=== PATIENT | female | born 1940 | race Caucasian/White ===

== ENCOUNTER 2017-12-07 09:38 | Inpatient (IN) | payer MEDICARE, BC ==
[~2017-12-07] VITALS: Ht 154.9 cm; Wt 84.4 kg
[2017-12-07] VITALS (16 sets, daily range): BP systolic 117–146; BP diastolic 63–82
[~2017-12-07 09:38] MED LIST: ASPIR 8181 MG PO; BYSTOLIC 5 MG5 M1 PO; BYSTOLIC10 MG PO; CO Q-10100 MG PO; CRESTOR20 MG PO; DALIRESP500 MCG PO; FISH OIL 1,001000 M2 PO; PLAVIX 75 MG TA75 M1 PO; PREMARIN0.625 MG PO; PROTONIX40 M1 PO; RESTASIS1 EACH OPHTHALMIC; SERTRALINE HCL50 MG PO; SINGULAIR 10 MG10 M1 PO; SPIRIVA INH; SYMBICORT160 MCG/4. INH; VITAMIN D2000 UNIT PO; XANAX 0.25 MG0.25 MG PO
[2017-12-07 10:09] LABS: HEMATOCRIT 41.5 % (37.0-47.0); HEMOGLOBIN 13.5 gm/dL (12.0-15.0); MCH 27.2 pg (26.0-34.0); MCHC 32.4 g/dL (28.0-37.0); MPV 8.7 fl. (7.2-11.1); RBC 4.94 mil/uL (4.20-5.00); RDW-CV 14.9 % (10.5-14.5); WBC 11.2 thou/uL (4.0-11.0)
[2017-12-07 10:18] LABS: APTT 29.6 Seconds (25.0-31.3); PROTIME 10.2 Seconds (9.20-11.50)
[2017-12-07 10:27] LABS: ALBUMIN 3.6 g/dL (3.4-5.0); ALKALINE PHOSPHATASE 90 U/L (46-116); ANION GAP 8 mmol/L (7-16); CALCIUM 10.4 mg/dL (8.5-10.1); CHLORIDE 104 mmol/L (98-107); CO2 28 mmol/L (21-32); CREATININE 0.7 mg/dL (0.6-1.3); GLUCOSE 107 mg/dL (70-99); POTASSIUM 4.1 mmol/L (3.5-5.1); SGOT 19 U/L (15-37); SGPT 22 U/L (30-65); SODIUM 140 mmol/L (136-145); TOTAL BILIRUBIN 0.3 mg/dL (<0.1-1.0); TOTAL PROTEIN 7.7 g/dL (6.4-8.2)
[2017-12-07 10:43] LABS: BUN 12 mg/dL (7-18); CHOLESTEROL 180 mg/dL (<200); HDL CHOLESTEROL 85 mg/dL (>40); LDL CHOLESTEROL 74 mg/dL (<100); TC:HDL 2.1 Ratio (Not establshd); TRIGLYCERIDE 108 mg/dL (<150); VLDL 22 mg/dL (<40)
[2017-12-07 10:44] LABS: SERUM ASSESSMENT Clear
--- NOTE | 2017-12-07 17:46 | EKG ---
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[employer] Teacher: : 1940 Requested By: Luis Enrique Mcdaniel Order Number: [id number] Pascale MD: Ilan Shepard Measurements Intervals [place] Rate: 70 P: 49 IA: 214 QRS: 37 QRSD: 151 T: 69 QT: 447 QTc: 483 Interpretive Statements Sinus rhythm Borderline prolonged IA interval Right bundle branch block Compared to ECG 02/01/2016 08:38:55 Right bundle-branch block now present Electronically Signed On 12-07-2017 17:46:06 TRANSFER TABLE OPERATOR HELPER by Ilan Shepard [email or web address] <ELECTRONICALLY SIGNED> By: Ilan Shepard MD, [facility] 12/07/17 1746 1050 1050 Ilan Shepard MD, [facility] /EPI
--- NOTE | 2017-12-07 17:46 | EKG ---
[place] [address] ELECTROCARDIOGRAM REPORT Name: EPIFANIO MUSE Room: [address] ADM IN .R.#: [id number] Admission: 12/07/17 Attend Phys: Luis Enrique Mcdaniel MD, Discharge: Date of : 42 Report #: [id number] THIS REPORT FOR: //name// [facility] Test Date: 2017-12-07 Test Time: 10:42:44 Pat Name: EPIFANIO MUSE Department: Room: [facility] Gender: F Title Supervisor: : 1940 Requested By: Luis Enrique Mcdaniel Order Number: [id number] Pascale MD: Ilan Shepard Measurements Intervals [place] Rate: 74 P: 59 [place]: 164 QRS: 40 QRSD: 148 T: -14 QT: 418 QTc: 464 Interpretive Statements Sinus rhythm Probable left atrial enlargement Right bundle branch block Baseline wander in lead(s) I,II,aVR,aVF,V3,V6 Compared to ECG 02/01/2016 08:38:55 Right bundle-branch block now present Electronically Signed On 12-07-2017 17:46:01 CROP GRAIN OR LIVESTOCK FARMER by Ilan Shepard [email or web address] <ELECTRONICALLY SIGNED> By: Ilan Shepard MD, FACC 12/07/17 1746 1042 1042 Ilan Shepard MD, FAC /EPI
--- NOTE | 2017-12-07 17:47 | EKG ---
[place] [address] ELECTROCARDIOGRAM REPORT Name: EPIFANIO MUSE Room: [address] ADM IN M.R.#: [id number] Admission: 12/07/17 Attend Phys: Luis Enrique Mcdaniel MD, Discharge: Date of : 42 Report #: [id number] THIS REPORT FOR: //name// [facility] Test Date: 2017-12-07 Test Time: 13:08:26 Pat Name: EPIFANIO MUSE Department: Room: [facility] Gender: F Wastewater Supervisor: 28 : 1940 Requested By: Luis Enrique Mcdaniel Order Number: [id number] Pascale MD: Ilan Shepard Measurements Intervals [place] Rate: 65 P: 71 MT: 171 QRS: 32 QRSD: 148 T: -7 QT: 442 QTc: 460 Interpretive Statements Sinus rhythm Probable left atrial enlargement Right bundle branch block Compared to ECG 02/01/2016 08:38:55 Right bundle-branch block now present Electronically Signed On 12-07-2017 17:46:57 BUILDING RENTAL SUPERINTENDENT by Ilan Shepard [email or web address] <ELECTRONICALLY SIGNED> By: Ilan Shepard MD, [facility] 12/07/17 1746 1308 1308 Ilan Shepard MD, FAC /EPI
[2017-12-08 00:02] VITALS: BP 100/46
[2017-12-08 03:57] VITALS: BP 118/54
--- NOTE | 2017-12-08 05:15 | NUR ---
A&O X4 CALM COOPERITVE. PT REFUSED FLUIDS AND 0000 MEDS. PT ADLIB. REPORTS SHE IS READY TO GO HOME. DENIES PAIN. VITALS WNL. BBB SR ON THE MONITOR. PT STOPED O2, O2 SAT IS 93 RA. HOURLY ROUNDING FOR SAFETY.
[2017-12-08 05:31] LABS: HEMOGLOBIN 12.3 gm/dL (12.0-15.0); MCH 27.5 pg (26.0-34.0); MCHC 32.3 g/dL (28.0-37.0); RBC 4.48 mil/uL (4.20-5.00); RDW-CV 15.1 % (10.5-14.5); WBC 10.7 thou/uL (4.0-11.0)
[2017-12-08 05:51] LABS: CALCIUM 9.6 mg/dL (8.5-10.1); CREATININE 0.6 mg/dL (0.6-1.3); TROPONIN-I LEVEL 0.11 ng/mL (<0.06)
[2017-12-08 08:00] VITALS: BP 135/62
[2017-12-08 09:19] VITALS: BP 118/54
[2017-12-08 11:46] VITALS: BP 118/54
[2017-12-08 12:13] VITALS: BP 118/54
--- NOTE | 2017-12-08 13:02 | NUR ---
PT DISCHARGED WITH CARDIAC REHAB INSTRUCTIONS NO CONCERNS AT THIS TIME IV AND TRANSPORTATION PROJECT MANAGER DISCONTINUED
--- NOTE | 2017-12-08 16:30 | H ---
[place] [address] HISTORY AND PHYSICAL Name: EPIFANIO MUSE Alessia Room: [address] IN M.R.#: [id number] Admission: 12/07/17 Attend Phys: Luis Enrique Mcdaniel MD, Discharge: 12/08/17 Date of : 42 Report #: [id number] THIS REPORT FOR: //name// CC: FAM unknown Luis Enrique Mcdaniel History and Physical HISTORY OF PRESENT ILLNESS: The patient is a very pleasant 77-year-old female with a history of complex coronary artery disease status post multivessel percutaneous coronary intervention in 2008. 22 months ago, she underwent intervention of the distal right coronary artery with stents deployed in the posterior descending and posterolateral branches. Recently, she has noted some chest discomfort and some increase in dyspnea with activity. She underwent a recent stress echocardiographic evaluation on 11/10/2017 and that study was abnormal with inducible anterolateral distal inferior and lateral hypokinesis after a modest exertion. It was felt to be positive in multiple territories. The patient has underlying hypertension, hypercholesterolemia, history of tobacco abuse and chronic obstructive pulmonary disease. She has remained compliant with a complex medical regimen including vitamins C, D and coenzyme Q as well as Symbicort b.i.d., Zoloft 100 mg daily, aspirin 81 mg daily, Singulair 10 mg daily, Premarin, Crestor 20 mg daily, Ambien as needed for sleep, Xanax on a p.r.n. basis, albuterol 2 puffs as needed, Bystolic 5 mg daily and Protonix 40 mg. PAST MEDICAL HISTORY: Remarkable for chronic obstructive pulmonary disease with underlying asthma, hypertension, hypercholesterolemia and significant antecedent cigarette smoking history. SOCIAL HISTORY: The patient continues to smoke modest amounts of cigarettes. REVIEW OF SYSTEMS: Remarkable for the following positives: PULMONARY: There is a history of asthma and chronic dyspnea with exertion. GENERAL: The patient notes modest weight excess. PHYSICAL EXAMINATION: GENERAL: Demonstrates a pleasant elderly female in no acute distress. VITAL SIGNS: Blood pressure is 135/75, pulse rate is 84, respirations are 18-20 per minute. NECK: Jugular venous pressure is normal. CHEST: Reveals decreased breath sounds with a prolonged expiratory phase with occasional rhonchi. CARDIAC: Reveals normal first and second heart sounds without rubs, [place] [address] HISTORY AND PHYSICAL Name: EPIFANIO MUSE Room: [address]#: [id number] Admission: 12/07/17 Attend Phys: Luis Enrique Mcdaniel MD, Discharge: 12/08/17 Date of : 42 Report #: [id number] ABDOMEN: Mildly obese. EXTREMITIES: Without edema with intact femoral, pedal and radial pulses. IMPRESSION: 1. Coronary artery disease, status post prior percutaneous coronary interventions in 2008 and 2015. 2. Recent abnormal stress echocardiogram with inducible anterolateral, distal, inferior and lateral hypokinesis after a modest exercise. 3. Hypertension. 4. Hypercholesterolemia. 5. Chronic obstructive pulmonary disease with the bronchoconstrictive component. RECOMMENDATIONS: Given the aforementioned clinical scenario with known coronary artery disease status post multiple prior percutaneous coronary interventions and a recently abnormal stress echocardiogram with three territories suggesting inducible ischemia in multiple territories, I would recommend proceeding with repeat cardiac catheterization to define current coronary anatomy and prospects for subsequent therapeutic modification. This has been discussed with the patient and family, we will plan and proceed with cardiac catheterization on Wednesday12/07/2017. The patient to be admitted through same day surgery at [facility] for cardiac catheterization on 12/07/2017. <ELECTRONICALLY SIGNED> By: Luis Enrique Mcdaniel MD, FACC 12/08/17 1630 0931 1022Josg Mcdaniel MD, FACC /nt
--- NOTE | 2017-12-08 16:31 | D ---
[address] [address] DISCHARGE SUMMARY Name: EPIFANIO GORE Room: [address] IN M.R.#: [id number] Admission: 12/07/17 Attend Phys: Luis Enrique Mcdaniel MD, Discharge: 12/08/17 Date of : 42 Report #: [id number] THIS REPORT FOR: //name// CC: Jonatan Gore MD [facility] FAM unknown Luis Enrique Mcdaniel DATE OF SERVICE: 12/08/2017 FINAL DISCHARGE DIAGNOSES: 1. Unstable angina. 2. Abnormal stress echocardiogram. 3. Coronary artery disease status post remote multivessel stenting and stenting of the LAD on 12/07/2017. 4. Hyperlipoproteinemia. 5. Hypertension. 6. Chronic obstructive pulmonary disease. PROCEDURES: 12/07/2017 -- left heart catheterization, left ventriculography, selective coronary arteriography, and percutaneous coronary intervention with deployment of drug-eluting stent at site of 80% irregular mid LAD stenosis. The patient is a delightful 77-year-old female with a history of known coronary artery disease and multiple prior percutaneous coronary interventions. She has underlying hypertension, hyperlipoproteinemia and chronic obstructive pulmonary disease in the context of an antecedent cigarette smoking history. Recently, she has noted increased dyspnea on exertion and stress echocardiogram revealed inducible anterolateral wall motion abnormality. In this context, I performed cardiac catheterization on 12/07/2017, which revealed 80% irregular mid LAD stenosis. There was a widely patent stent in the posterior descending and the posterolateral branch of the dominant right coronary artery with 40%-50% tubular narrowing proximal to the bifurcation. Circumflex with a nondominant vessel. Left ventricular function was mildly impaired with inferobasilar akinesis and mild mid anterior hypokinesis, estimated ejection fraction being 50%. The patient did well post-procedurally and there was good hemostasis at the right femoral site of catheterization. Laboratory data on 12/08 revealed a hemoglobin of 12.3; white blood cell count of 10,700 with 286,000 platelets. Sodium 142, potassium 4.0, BUN 9, creatinine 0.6, glucose randomly 108 milligrams percent. Troponin kaila inconsequentially to 0.11. The patient ambulated in the hallways without difficulty. She was discharged to home on the following medical regimen: Alprazolam 0.25 mg t.i.d., aspirin 81 mg daily, Symbicort 2 puffs b.i.d., cholecalciferol 2000 units daily, clopidogrel or Plavix 75 mg daily with a 600 mg dose given elayne-procedurally, cyclosporine ophthalmic drops one drop b.i.d., fish oil 1000 mg q.i.d., [place] [address] DISCHARGE SUMMARY Name: EPIFANIO GORE Room: [address] IN M.R.#: [id number] Admission: 12/07/17 Attend Phys: Luis Enrique Mdcaniel MD, Discharge: 12/08/17 Date of : 42 Report #: [id number] or Premarin 0.625 mg daily, Singulair 10 mg daily, nebivolol or Bystolic 10 mg daily, pantoprazole 40 mg daily, roflumilast 500 mcg p.o. daily, rosuvastatin 20 mg daily, sertraline or Zoloft 100 mg daily, Spiriva 1 capsule daily, coenzyme Q 200 mg daily. She is discharged home in stable condition. I will plan to see her in followup in approximately 4 weeks. She also has a primary care physician in [place] from where she originates. Thus, the patient is discharged to home on the aforementioned medications with followup as iterated above. She is in stable condition. <ELECTRONICALLY SIGNED> By: Luis Enrique Mcdaniel MD, FACC 12/08/17 1631 0958 1024Josg Mcdaniel MD, FACC /nt
--- NOTE | 2017-12-08 17:40 | EKG ---
[place] [address] ELECTROCARDIOGRAM REPORT Name: EPIFANIO MUSE Room: [address] IN M.R.#: [id number] Admission: 12/07/17 Attend Phys: Luis Enrique Mcdaniel MD, Discharge: 12/08/17 Date of : 42 Report #: [id number] THIS REPORT FOR: //name// [facility] Test Date: 2017-12-08 Test Time: 08:59:13 Pat Name: EPIFANIO MUSE Department: Room: [address] Gender: F Attendant Coin Operated Laundry: : 1940 Requested By: Luis Enrique Mcdaniel Order Number: [id number] Reading MD: Ilan Shepard Measurements Intervals [place] Rate: 105 P: 53 DC: 140 QRS: 57 QRSD: 148 T: -44 QT: 358 QTc: 474 Interpretive Statements Sinus tachycardia Multiple ventricular premature complexes Probable left atrial enlargement Right bundle branch block Compared to ECG 12/07/2017 13:08:26 Ventricular premature complex(es) now present Sinus rhythm no longer present Electronically Signed On 12-08-2017 17:40:32 CLOSET BUILDER by Ilan Shepard [email or web address] <ELECTRONICALLY SIGNED> By: Ilan Shepard MD, FACC 12/08/17 1740 0859 0859 Ilan Shepard MD, FAC /EPI
--- NOTE | 2017-12-10 10:58 | CARD ---
[address] [address] CARDIAC CATH REPORT Name: EPIFANIO MUSE Room: [address] IN ..#: [id number] Admission: 12/07/17 Attend Phys: Luis Enrique Mcdaniel MD, Discharge: 12/08/17 Date of : 42 Report #: [id number] THIS REPORT FOR: //name// APPROVED REPORT Patient Details Patient Status: Out-Patient Room #: The patient is a 77 year-old female Event Personnel Luis Enrique Mcdaniel Supervisor Rose Grading, Mesha Arshad RN Radiographic Technologist, Wes Wilson (R) Monitor, RicaFatou cooper RTR Scrub Procedures Performed Left heart catheterization, left ventriculography, selective coronary angiography, and percutaneous current mental deployment of drug-eluting stent at the site of 80% irregular mid LAD stenosis Indication Dyspnea, Positive stress test Risk Factors Hypercholesterolemia, Hypertension, Tobacco History () Previous Procedures/Diagnoses Previous PCI, Previous [place] Admission/Lab Medications/Medications given during procedure Aspirin, Platelet Aff. Inhib., Angiomax bolus and infusion Procedure Narrative The patient was brought electively to the Cardiac Catheterization Laboratory and was prepped and draped in a sterile manner. The right femoral was infiltrated with 1% Lidocaine subcutaneous anesthesia. A 6 Fr Perry sheath was inserted into the Right Femoral Artery. Coronary angiography was performed using coronary diagnostic catheters. The right coronary system was accessed and visualized with a Diagnostic JR4 catheter. The left coronary system was accessed and visualized with a Diagnostic JL 4 catheter. The left ventricle was accessed and visualized with a Diagnostic Straight Pig catheter. Left ventricular/Aortic Valve gradient assessed via catheter pullback. Left ventriculogram was performed in GONSALVES projection. Pre-demployment femoral angiogram was performed . Closure [place] [address] CARDIAC CATH REPORT Name: EPIFANIO MUSE Room: [address]#: [id number] Admission: 12/07/17 Attend Phys: Luis Enrique Mcdaniel MD, Discharge: 12/08/17 Date of : 42 Report #: [id number] Fr MynxGrip 6/7F. The patient tolerated the procedure well and there were no complications associated with the procedure. There was no hematoma. Intraoperative Conscious Sedation Sedation start time: 11:03 Case end Time: 11:50 Fentanyl 50 mcg Versed 2 mg Fluoro Time: 12.9 minutes Dose: DAP 156231 cGycm2 1594 mGy Contrast Type and Amount: Visipaque 230 ml Diagnostic Cath Left Main 0% narrowing LAD 80% irregular mid LAD stenosis Circumflex 30% proximal narrowing with 60% narrowing at the ostium of the second marginal branch Right Coronary 40% mid vessel narrowing with widely patent stents in the posterolateral and posterior descending branches Left Ventriculography The left ventricle is normal in size with contractility. The left ventricular ejection fraction is estimated to be 50%. There is no mitral insufficiency. Left ventriculography demonstrated an ejection fraction of 50% with inferobasilar akinesis and mild midanterior hypokinesis Hemodynamics The aortic pressure is 119/59 mmHg with a mean of 76 mmHg. The left ventricular pressure is 130/3 mmHg with a mean of mmHg. The left ventricular end diastolic pressure is 8 mmHg. There was no gradient across the aortic valve upon pullback. PCI Technique Lesion Anticoagulation was achieved with Angiomax. Patient was preloaded with Angiomax IV 12 ml. Percutaneous coronary intervention was performed on the mid left anterior descending artery segment. The lesion stenosis prior to intervention was 80% with DAWSON 3 flow. A 6F XB LAD 3.5 Guide Catheter was used to engage the ostium. A IG: ProwaterFlex 180CM Interventional Guidewire was used to cross the lesion. BALLOON DILATION A Balloon catheter Trek RX 2.5 X 15 was inserted and inflated up to 12.00atm for 18seconds. Additional Inflation: 14.00[place] [address] CARDIAC CATH REPORT Name: EPIFANIO UMSE Room: [address]#: [id number] Admission: 12/07/17 Attend Phys: Luis Enrique Mcdaniel MD, Discharge: 12/08/17 Date of : 42 Report #: [id number] 17seconds. STENT DEPLOYMENT A drug-eluting stent Xience Alpine RX 2.5X18 was inserted and inflated up to 12.00atm for 15seconds. Additional Inflation: 14.00atm for 13seconds. POST STENT DEPLOYMENT BALLOON DILATION A Balloon catheter NC Trek RX 2.5 X 12 was inserted and inflated up to 17.00atm for 14seconds. Additional Inflation: 18.00atm for 13seconds. Final angiography reveals 10 % stenosis with DAWSON 3 flow. Conclusion #1 significant coronary artery disease characterized by the following: A 80% irregular mid LAD stenosis, B 30% proximal circumflex proximal narrowing with 60 percent ostial second marginal narrowing, C dominant right coronary artery with 40% mid vessel narrowing, widely patent stents in the proximal posterior descending and posterolateral branches, #2 mild impairment in global left ventricular systolic function, estimated ejection fraction of 50% with inferobasilar akinesis and mild midanterior hypokinesis, #3 normal left-sided hemodynamics study, #4 successful percutaneous coronary intervention with deployment of drug-eluting stent at the site of 80% mid LAD stenosis with 10% residual narrowing following stent deployment and DAWSON-3 flow to the distal vessel. Recommendations Cardiac Risk Reduction Program Aggressive Medical [place] [address] CARDIAC CATH REPORT Name: EPIFANIO MUSE Room: [address] IN M.R.#: [id number] Admission: 12/07/17 Attend Phys: Luis Enrique Mcdaniel MD, Discharge: 12/08/17 Date of : 42 Report #: [id number] Aspirin (any) Clopidogrel <ELECTRONICALLY SIGNED> By: Luis Enrique Mcdaniel MD, FACC 12/10/178 57 57Luis Enrique Mcdaniel MD, FACC /INF
== END 2017-12-08 13:00 | disposition home or self-care (01) | DRG 247 ==
LOC: M.CL 09:38 → M.TBA-CV 12:12 → M.2W 12:12
PROVIDERS: ADMIT Internal Medicine
PROC: B2111ZZ Fluoroscopy of Multiple Coronary Arteries using Low Osmolar Contrast (ICD-10-PCS; principal; 2017-12-07)
PROC: B2151ZZ Fluoroscopy of Left Heart using Low Osmolar Contrast (ICD-10-PCS; principal; 2017-12-07)
PROC: 027034Z Dilation of Coronary Artery, One Artery with Drug-eluting Intraluminal Device, Percutaneous Approach (ICD-10-PCS; principal; 2017-12-07)
PROC: 4A023N7 Measurement of Cardiac Sampling and Pressure, Left Heart, Percutaneous Approach (ICD-10-PCS; principal; 2017-12-07)
DX: I25.110 Atherosclerotic heart disease of native coronary artery with unstable angina pectoris (principal); I10 Essential (primary) hypertension; E78.00 Pure hypercholesterolemia, unspecified; J44.9 Chronic obstructive pulmonary disease, unspecified; F17.210 Nicotine dependence, cigarettes, uncomplicated; E78.5 Hyperlipidemia, unspecified